=== PATIENT | male | born 1960 | race Caucasian/White ===

== ENCOUNTER 2021-10-22 13:51 | Emergency (ER) | payer OTHER, SELFPAY ==
[2021-10-22] VITALS (28 sets, daily range): BP systolic 104–142; BP diastolic 70–80; PULSE 55–70; RESP 10–21; TEMP 36.8–37; O2SAT 91–99
--- NOTE | 2021-10-22 13:45 | RT.EKG_ITS ---
APPROVED REPORT Exam: Resting ECG Reason for Exam: chest pain Patient Location: E HR:67 bpm ECG Measurements Heart Rate 67 AXIS MD 194 P 19 QRSd 135 QRS 61 QT 409 T 51 QTc 432 Conclusion Sinus rhythm...normal P axis, V-rate 60- 99 Right bundle branch block...QRSd>120, terminal axis(90,270)
--- NOTE | 2021-10-22 14:15 | RT.EKG_ITS ---
APPROVED REPORT Exam: Resting ECG Reason for Exam: chest pain Patient Location: E HR:59 bpm ECG Measurements Heart Rate 59 AXIS NV 195 P -6 QRSd 136 QRS 26 QT 440 T 40 QTc 437 Conclusion Sinus bradycardia...rate< 60 Right bundle branch block...QRSd>120, terminal axis(90,270)
--- NOTE | 2021-10-22 14:15 | DI.RAD_ITS ---
Exam(s) XR PORTABLE CHEST AP EXAM: XR PORTABLE CHEST AP CLINICAL HISTORY: chest pain TECHNIQUE: 2D digital imaging was performed. COMPARISON: No exams were available for comparison FINDINGS: LUNGS: Overlying monitor leads. Mild interstitial changes. No focal consolidation. No pleural abno rmality seen. HEART: Normal. AORTA: Normal. BONES: Unremarkable for age. Soft tissues: Unremarkable. IMPRESSION: No acute findings. DATA REPOSITORY: RADIATION DOSE DELIVERED:
[2021-10-22] MEDS: nitroGLYcerin 0.4 MG TAB SL (14:27)
[2021-10-22 14:40] LABS: Abs Immature Grans 0.05 10^3/uL (0.0-0.06); Absolute Basophil Count 0.06 10^3/uL (0.0-0.2); Absolute Eosinophil Count 0.14 10^3/uL (0.0-0.7); Absolute Lymphocyte Count 2.54 10^3/uL (1.2-3.4); Absolute Monocyte Count 0.92 10^3/uL (0.1-0.8); Absolute Neutrophil Count 10.26 10^3/uL (1.2-6.7); Basophils % 0.4; HCT 45.6 % (40.0-50.0); HGB 15.7 g/dL (13.5-17.5); Immature Grans % 0.4; Lymphocytes % 18.2; MCH 33.5 pg (27.0-33.0); MCHC 34.4 % (32.0-36.0); MCV 97 fL (80-95); MPV 10.4 fL (8.0-11.0); Monocytes % 6.6; Neutrophils % 73.4; Platelet Count 214 10^3/uL (130-400); RBC 4.69 10^6/uL (4.36-5.78); RDW 12.5 % (11.8-14.1); RDW-SD 44.6 fL; WBC 13.98 10^3/uL (4.4-10.8)
[2021-10-22 14:56] LABS: ALT 43 U/L (16-63); AST 29 U/L (15-37); Albumin 3.8 g/dL (3.4-5.0); Alkaline Phosphatase 90 U/L (46-116); Anion Gap 11.2 mmol/L (3-11); BUN 15 mg/dL (7-18); Bilirubin, Total 0.6 mg/dL (0.2-1.0); CO2 23.8 mmol/L (21.0-32.0); CREATININE 1.2 mg/dL (0.70-1.30); Calcium 9.1 mg/dL (8.5-10.1); Chloride 105 mmol/L (98-107); Glucose 114 mg/dL (74-106); Magnesium 2.1 mg/dL (1.8-2.4); Potassium 4.1 mmol/L (3.5-5.1); Sodium 140 mmol/L (136-145); Troponin I < 50 ng/L (<or=60)
--- NOTE | 2021-10-22 15:21 | ED.GENADUL_ITS ---
Discharge Plan Disposition Patient Disposition: HOME Condition: Stable Discharge Details Clinical Impression: Chest pain Primary Care Provider: [facility],Local ED Provider: Flaco Stacy Home Meds and New Rx's Prescriptions: Continued atorvastatin 10 mg Tablet 20 mg PO DAILY aspirin 325 mg Capsule 235 mg PO DAILY Discharge Instructions Instructions: Chest Pain (ED) Additional Instructions: At this time your laboratory values do not reveal any emergent process and you are currently asymptomatic. As we discussed your presentation and symptoms are concerning, your heart score is 4, and we have recommended admission. You have declined admission and understand the risks of being discharged. Please watch for new or worsening symptoms and return to the ER for any concerns. Lastly, please contact your primary care provider first thing Sunday morning to discuss your ER visit, ongoing symptoms, need for outpatient stress test and echocardiogram. Discharge Data Discharge Date/Time-TO BE ENTERED AT DEPARTURE: 10/22/21 17:55 Medical Decision Making <VIVEK Timmons - Last Filed: 10/24/21 11:33> Chest x-ray that does not show evidence of acute process, question of bronchial thickening although patient denies any shortness of breath or cough I did attempt 1 dose of nitroglycerin, 0.4 sublingual, patient had no symptomatic improvement with this in fact it made his discomfort worse, I will not administer any more nitroglycerin Patient took 325 aspirin prior to arrival, will not give additional aspirin Heart score is 4, recommend admission, patient has declined as he does not live locally and is willing to stay for a repeat troponin at the 3-hour ankush and repeat EKG at this time He is aware that he is at risk for having heart attack and that our recommendation is that he has serial troponin and echo to rule out assessment, again he is completely alert, oriented, of decisional capacity and his in the room throughout all discussions and he declines admission To be transferred to Flaco Stacy, physician telecom assistant at 1600 pending repeat EKG and troponin at 1719 smoking cessation reviewed Medical Records Medical records reviewed: Yes I reviewed the patient's medical records. Lab Data Lab results reviewed: Yes I reviewed the patient's lab results. <VIVEK Hobson - Last Filed: 10/22/21 17:49> Chest x-ray that does not show evidence of acute process, question of bronchial thickening although patient denies any shortness of breath or cough I did attempt 1 dose of nitroglycerin, 0.4 sublingual, patient had no symptomatic improvement with this in fact it made his discomfort worse, I will not administer any more nitroglycerin Patient took 325 aspirin prior to arrival, will not give additional aspirin Heart score is 4, recommend admission, patient has declined as he does not live locally and is willing to stay for a repeat troponin at the 3-hour ankush and repeat EKG at this time He is aware that he is at risk for having heart attack and that our recommendation is that he has serial troponin and echo to rule out assessment, again he is completely alert, oriented, of decisional capacity and his in the room throughout all discussions and he declines admission To be transferred to Flaco Stacy, physician telecom assistant at 1600 pending repeat EKG and troponin at 1719 smoking cessation reviewed 1600 Flaco Stacy PA-C I assumed care of this 61-year-old gentleman from my colleague VIVEK Galloway, please see her initial HPI and examination. 61-year-old gentleman developed chest pain that radiated to his left shoulder earlier today, heart score of 4, recommends admission the patient declines. At time of signout he is agreeable to awaiting a delta troponin and EKG. Will repeat EKG obtained at 1736, please see official read by Dr. Raymundo. Sinus bradycardia, right bundle branch block, ventricular rate of 59. No dynamic changes with earlier EKG. Delta troponin remains less than 50. Upon my reevaluation patient is resting comfortably, no acute distress. He reports that he is currently asymptomatic, does occasionally get a fleeting chest what he describes as tightness. Reports any dizziness or left shoulder pain has resolved completely. We discussed his repeat troponin and EKG. We once again discussed his heart score of 4, recommended admission but he declines. We discussed the importance of outpatient follow-up through his PCP including echocardiogram and stress test. Strict discharge and return precautions were provided. Patient understands, is agreeable to this plan, and has no additional questions or concerns upon discharge. This documentation was generated using [employer] system, please disregard any oddities of phrase or misspellings. Imaging Data Radiologic Study: Attestation: I personally reviewed and interpreted this imaging study as follows: Imaging: X-Ray Radiologist's impression: PROCEDURE INFORMATION: Exam: XR Chest Exam date and time: 10/22/2021 2:37 PM Age: 61 years old Clinical indication: Other: Chest pain TECHNIQUE: Imaging protocol: XR of the chest. Views: 1 view. COMPARISON: No relevant images were readily available for comparison purposes. FINDINGS: Lungs: bronchial wall thickening. no convincing consolidation. Pleural spaces: no pneumothorax. no sizable pleural effusion. Heart/Mediastinum: cardiomediastinal silhouette within normal limits. Bones/joints: no acute fracture or dislocation. no acute displaced fracture. IMPRESSION: Bronchial wall thickening suggestive of airways disease without convincing evidence of pneumonia at this time. HPI <VIVEK Timmons - Last Filed: 10/24/21 11:33> General Date/Time Provider Initiated Documentation: 10/22/21 13:55 . HPI Narrative: This 61-year-old gentleman with history of high cholesterol presents with report of chest pressure which started at approximately 1:00. He states he was driving when the pain started. He states that it was notable in his left shoulder. He denies any jaw pain, nausea, diaphoresis. He has significant family history, father had a quadruple bypass at 56 years old and patient never had any sort of outpatient or inpatient cardiac testing. He smokes tobacco on a daily basis, drinks alcohol, 2-3 beers daily. He is on Lipitor for cholesterol. Patient denies any associated shortness of breath. He denies any recent dyspnea on exertion. He took a full dose aspirin at 1:00. He also checked his regular aspirin dose this morning. Denies any calf pain or swelling. Denies fever or chills. Denies any cough. Related Data Home Medications Medication Instructions Recorded Confirmed aspirin 325 mg capsule 235 mg PO DAILY 10/22/21 10/22/21 atorvastatin 10 mg tablet 20 mg PO DAILY 10/22/21 10/22/21 Allergies Allergy/AdvReac Type Severity Reaction Status Date / Time No Known Allergies Allergy Unverified 10/22/21 14:02 General Stated Complaint: Chest Pain HENRIK: 3 Review of Systems <VIVEK Timmons - Last Filed: 10/24/21 11:33> All systems reviewed & are unremarkable except as noted in HPI and below PFSH <VIVEK Timmons - Last Filed: 10/24/21 11:33> All Active Problems (Updated 10/22/21 @ 17:48 by VIVEK Hobson) Chest pain (Acute) Social History Smoking/Tobacco Use Status: Current every day Tobacco Type: cigarettes Smoking risk assessment performed?: Yes Alcohol Intake: current Alcohol Intake frequency: 0-2 drinks per day Drug use: Never Substance use type: does not use Do you feel safe at home: Yes Do you feel safe in your relationship?: Yes Exam <VIVEK Timmons - Last Filed: 10/24/21 11:33> Const General: cooperative, comfortable and no acute distress Eyes Pupils: PERRL Chest Chest: normal inspection of the chest Other: No rashes or lesions, no chest wall tenderness Resp Effort & Inspection: normal respiratory effort Cardio Rate: regular rate Rhythm: regular rhythm GI Inspection: normal to inspection Percussion: normal to percussion Skin General skin exam: no rashes or lesions noted Neuro General: patient alert and patient oriented x3 Extrem General: normal to inspection Other: Distal pulses intact, no calf swelling or tenderness Course <VIVEK Timmons - Last Filed: 10/24/21 11:33> Vital Signs Vital signs: Vital Signs Temperature 36.8 C 10/22/21 13:56 Pulse 69 10/22/21 13:56 Respiratory Rate 16 10/22/21 13:56 Blood Pressure 142/70 H 10/22/21 13:56 Pulse Oximetry 96 10/22/21 13:56 Temperature 36.8 C 10/22/21 13:56 Pulse 69 10/22/21 13:56 Pulse 69 10/22/21 14:10 Respiratory Rate 14 10/22/21 14:10 Respiratory Effort 10/22/21 14:03 Respiratory Depth Normal 10/22/21 14:03 Respiratory Pattern Normal 10/22/21 14:03 Blood Pressure 142/70 H 10/22/21 13:56 Pulse Oximetry 96 10/22/21 13:56 Pain Level 2 10/22/21 14:03 Comment 10/22/21 13:56 Lab/Test Results Lab/Test Results: Laboratory Tests Range/Units 10/22/21 10/22/21 14:25 14:25 WBC (4.4-10.8) 10^3/uL 13.98 H RBC (4.36-5.78) 10^6/uL 4.69 Hgb (13.5-17.5) g/dL 15.7 Hct (40.0-50.0) % 45.6 MCV (80-95) fL 97 H MCH (27.0-33.0) pg 33.5 H MCHC (32.0-36.0) % 34.4 RDW (11.8-14.1) % 12.5 Plt Count (130-400) 10^3/uL 214 MPV (8.0-11.0) fL 10.4 Immature Gran % 0.4 Neutrophils % 73.4 Lymphocytes % 18.2 Monocytes % 6.6 Eosinophils % 1.0 Basophils % 0.4 Nucleated RBC % (0.0-0.3) % 0.0 Absolute Neutrophils (1.2-6.7) 10^3/uL 10.26 H Absolute Lymphocytes (1.2-3.4) 10^3/uL 2.54 Absolute Monocytes (0.1-0.8) 10^3/uL 0.92 H Absolute Eosinophils (0.0-0.7) 10^3/uL 0.14 Absolute Basophils (0.0-0.2) 10^3/uL 0.06 Sodium (136-145) mmol/L 140 Potassium (3.5-5.1) mmol/L 4.1 Chloride (98-107) mmol/L 105 Carbon Dioxide (21.0-32.0) mmol/L 23.8 Anion Gap (3-11) mmol/L 11.2 H BUN (7-18) mg/dL 15 Creatinine (0.70-1.30) mg/dL 1.2 Estimated GFR/1.73 m2 (mL/min/1.73m2) >= 60.00 Glucose (74-106) mg/dL 114 H Calcium (8.5-10.1) mg/dL 9.1 Magnesium (1.8-2.4) mg/dL 2.1 Total Bilirubin (0.2-1.0) mg/dL 0.6 AST (15-37) U/L 29 ALT (16-63) U/L 43 Alkaline Phosphatase (46-116) U/L 90 Troponin I (<or=60) ng/L < 50 Total Protein (6.4-8.2) g/dL 7.0 Albumin (3.4-5.0) g/dL 3.8 Sign Out <VIVEK Timmons - Last Filed: 10/24/21 11:33> Sign Out Data: Sign Out Comment: pending repeat troponin and ekg at 520 Last updated by Margot Galloway PA at 10/22/21 15:45
[2021-10-22 17:32] LABS: Troponin I < 50 ng/L (<or=60)
== END 2021-10-22 17:55 | disposition home or self-care (01) ==
PROVIDERS: Physician Assistant; Emergency Provider Physician Assistant
DX: R07.9 Chest pain, unspecified (principal); F17.210 Nicotine dependence, cigarettes, uncomplicated
CPT/HCPCS: 80053; 93005; 99284; 71045; 83735; 84484; 85025; 93010; 99283